=== PATIENT | male | born 1970 | race Caucasian/White ===

== ENCOUNTER 2017-09-12 13:45 | Emergency (ER) | payer OTHER ==
[~2017-09-12] VITALS: Ht 182.8 cm; Wt 74.8 kg
[~2017-09-12 13:45] MED LIST: ACETAMINOPHEN-H1 TA2 PO; ARGININE PO; BIOTIN1000 MC1 PO; CYCLOBENZAPRINE10 MG PO; Carafate1 GM PO; FLUCONAZOLE100 MG PO; LEVAQUIN750 M1 PO; PREDNISONE10 MG PO; PREDNISONE20 M1 PO; PROTONIX40 MG PO; ULTRAM50 MG PO; VITAMIN D1000 IU PO
[2017-09-12 14:43] LABS: BASO % 0.2 % (0.0-1.0); EOS # 0.1 10*3/uL (0.0-0.4); EOS % 0.9 % (1.0-4.0); HEMATOCRIT 41.2 % (42.0-52.0); HEMOGLOBIN 13.9 g/dl (14.0-18.0); LYMPH # 2.5 10*3/uL (1.3-4.4); MEAN CELL VOLUME 92.2 fl (80.0-94.0); MEAN CORPUSCULAR HGB 31.1 pg (27.0-31.0); MEAN CORPUSCULAR HGB CONC 33.7 g/dl (33.0-37.0); MEAN PLATELET VOLUME 10.1 fl (9.6-12.3); MONO # 0.6 10*3/uL (0.1-1.0); MONO % 6.7 % (3.0-9.0); PLATELET COUNT AUTOMATED 227 10*3/uL (130-400); RED BLOOD COUNT 4.47 10*6/uL (4.50-5.90); RED CELL DISTRI WIDTH 12.8 % (0-14.5); WHITE BLOOD COUNT 8.2 10*3/uL (4.8-10.8)
[2017-09-12 14:55] LABS: ACT PARTIAL THROMBO TIME 21.2 SECONDS (20.8-31.5)
[2017-09-12 15:01] LABS: ALBUMIN 3.7 gm/dl (3.1-4.5); ALKALINE PHOSPHATASE 66 U/L (45-117); BUN 18 mg/dl (7-24); CHLORIDE 109 mmol/L (98-107); CREATININE 0.94 mg/dL (0.70-1.30); SGOT/AST 16 IU/L (3-35); SGPT/ALT 46 U/L (12-78); SODIUM 144 mmol/L (136-145); TOTAL PROTEIN 6.9 gm/dL (6.4-8.2)
[2017-09-12 15:05] LABS: TROPONIN I < 0.015 ng/ml (<0.045)
[2017-09-12] MEDS ORDERED: ZOFRAN4 MG PO (17:22)
[2017-09-12] MEDS ORDERED: SUNMARK OMEPRAZ20 M1 PO (17:22)
[2017-09-12] MEDS ORDERED: ZANTAC 150150 MG PO (17:22)
[2017-09-12] MEDS ORDERED: CARAFATE1 GM PO (17:22)
== END 2017-09-12 17:30 | disposition home or self-care (01) ==
LOC: ED 13:45
PROVIDERS: Nurse Practitioner Family
DX: R10.10 Upper abdominal pain, unspecified (principal); R03.0 Elevated blood-pressure reading, without diagnosis of hypertension; F17.200 Nicotine dependence, unspecified, uncomplicated; J44.9 Chronic obstructive pulmonary disease, unspecified; M51.36 Other intervertebral disc degeneration, lumbar region; Z79.899 Other long term (current) drug therapy; Z98.890 Other specified postprocedural states; Z88.0 Allergy status to penicillin

== ENCOUNTER 2017-10-10 08:58 | Emergency (ER) | payer OTHER ==
[~2017-10-10] VITALS: Wt 74.8 kg
[~2017-10-10 08:58] MED LIST changes: +CARAFATE1 GM PO; +SUNMARK OMEPRAZ20 M1 PO; +ZANTAC 150150 MG PO; +ZOFRAN4 MG PO
[2017-10-10] MEDS ORDERED: ROBITUSSIN DM 105 ML PO (11:17)
[2017-10-10] MEDS ORDERED: ZYRTEC10 MG PO (11:17)
[2017-10-10] MEDS ORDERED: PREDNISONE20 M1 PO (11:17)
[2017-10-10] MEDS ORDERED: CYCLOBENZAPRINE10 MG PO (11:17)
[2017-10-10] MEDS ORDERED: NAPROSYN500 MG PO (11:17)
== END 2017-10-10 11:20 | disposition home or self-care (01) ==
LOC: ED 08:58
DX: S16.1XXA Strain of muscle, fascia and tendon at neck level, initial encounter (principal); B34.9 Viral infection, unspecified; F17.200 Nicotine dependence, unspecified, uncomplicated; Z88.0 Allergy status to penicillin